=== PATIENT | female | born 1960 | race African-American/Black ===

== ENCOUNTER → 2017-09-05 | Outpatient (CLI) | payer OTHER | LOC: FIMAGING 07:02 | PROVIDERS: ATTEND Obstetrics & Gynecology | DX: N93.9 Abnormal uterine and vaginal bleeding, unspecified (principal); R93.8 Abnormal findings on diagnostic imaging of other specified body structures ==

== ENCOUNTER → 2019-02-24 | Outpatient (CLI) | payer OTHER | LOC: FIMAGING 07:45 ==